=== PATIENT | female | born 1975 | race African-American/Black ===

== ENCOUNTER 2016-04-30 08:13 | Emergency (ER) | payer BC ==
[~2016-04-30] VITALS: Ht 170.2 cm; Wt 110.4 kg
[~2016-04-30 08:13] MED LIST: HYDROCODON-ACE1 EAC7 PO
[2016-04-30 09:09] LABS: HEMATOCRIT 38.8 % (36.0-46.0); MCH 28.6 PG (29.0-34.0); MCHC 32.7 G/DL (30.0-36.0); MCV 87.4 FL (83-99); MEAN PLAT.VOLUME 10.8 uM^3 (9.5-12.4); PLATELET COUNT 245 K/uL (156-360); RBC DIS.WIDTH-CV 12.9 % (11.8-14.6); RBC DIS.WIDTH-SD 40.2 % (39-53); RED BLOOD COUNT 4.44 M/uL (3.80-5.20); WHITE BLOOD COUNT 8.9 K/uL (4.1-10.2)
[2016-04-30 09:17] LABS: CHLORIDE 106 mEq/L (99-109); POTASSIUM 3.4 mEq/L (3.7-5.4); SODIUM 138 mEq/L (136-147)
[2016-04-30 09:20] LABS: ADD MIUA? YES; BILIRUBIN NEGATIVE; BLOOD LARGE; COLOR YELLOW ((YELLOW)); GLUCOSE (STRIP) NEGATIVE; KETONES NEGATIVE; LEUKOCYTES NEGATIVE; NITRITE NEGATIVE; PH, URINE 6.5 (5-8); PROTEIN (STRIP) 30; SPECIFIC GRAVITY 1.028 (1.000-1.030); UROBILINOGEN 0.2 MG/DL (0.2-1.0)
[2016-04-30 09:20] LABS: GLUCOSE 136 mg/dL (70-99)
[2016-04-30 09:21] LABS: ANION GAP 13 MEQ/L (2-14)
[2016-04-30 09:22] LABS: TOTAL BILIRUBIN 1.1 mg/dL (0.0-1.0)
[2016-04-30 09:23] LABS: ALKALINE PHOSPHATASE 50 IU/L (3-129); GFR ESTIMATE (CALCULATED) > 59 mL/min/
[2016-04-30 09:24] LABS: UREA NITROGEN (BUN) 14 mg/dL (9-23)
[2016-04-30 09:32] LABS: QUANTITATIVE HCG < 4.0 MIU/ML
[2016-04-30 09:40] LABS: BACTERIA 3+; CASTS NONE SEEN /LPF; CRYSTALS NONE SEEN; EPITHELIAL CELLS 2+; MUCUS 1+; UCUL ADDED? NO; WHITE BLOOD CELLS 0-5 /HPF (0-5)
[2016-04-30] MEDS ORDERED: IMODIUM MS REL1 EACH PO (10:53)
[2016-04-30] MEDS ORDERED: BENTYL20 MG PO (10:53)
[2016-04-30] MEDS ORDERED: ZOFRAN ODT4 MG PO (10:53)
[2016-04-30 11:54] VITALS: BP 113/81
== END 2016-04-30 11:56 | disposition home or self-care (01) ==
LOC: EME 08:13
DX: K52.9 Noninfective gastroenteritis and colitis, unspecified (principal)
CPT/HCPCS: 80053; 81003; 83630; 84702; 85027; 99281; 99285; J1885; J2405; J7030

== ENCOUNTER 2017-07-27 11:01 | Emergency (ER) | payer OTHER ==
[~2017-07-27] VITALS: Ht 170.2 cm; Wt 110.6 kg
[~2017-07-27 11:01] MED LIST changes: +BENTYL20 MG PO; +IMODIUM MS REL1 EACH PO; +ZOFRAN ODT4 MG PO
[2017-07-27 11:10] VITALS: BP 107/88
[2017-07-27 12:06] LABS: HEMATOCRIT 37.5 % (36.0-46.0); HEMOGLOBIN 12.2 G/DL (11.9-15.5); MCH 28.7 PG (29.0-34.0); MCHC 32.5 G/DL (30.0-36.0); MCV 88.2 FL (83-99); PLATELET COUNT 274 K/uL (156-360); RBC DIS.WIDTH-CV 13.2 % (11.8-14.6); RBC DIS.WIDTH-SD 42.5 % (39-53); RED BLOOD COUNT 4.25 M/uL (3.80-5.20); WHITE BLOOD COUNT 6.4 K/uL (4.1-10.2)
[2017-07-27 12:17] LABS: CHLORIDE 104 mEq/L (99-109); POTASSIUM 3.9 mEq/L (3.7-5.4); SODIUM 140 mEq/L (136-147)
[2017-07-27 12:18] LABS: GLUCOSE 92 mg/dL (70-99)
[2017-07-27 12:22] LABS: CREATININE 0.8 mg/dL (0.6-1.3); GFR ESTIMATE (CALCULATED) > 59 mL/min/
[2017-07-27 12:23] LABS: UREA NITROGEN (BUN) 8 mg/dL (9-23)
[2017-07-27 13:14] LABS: QUANTITATIVE HCG < 4.0 MIU/ML
[2017-07-27 13:16] LABS: APPEARANCE SL.HAZY ((CLEAR)); BILIRUBIN NEGATIVE; BLOOD MODERATE; COLOR YELLOW ((YELLOW)); GLUCOSE (STRIP) NEGATIVE; KETONES 20; LEUKOCYTES NEGATIVE; NITRITE NEGATIVE; PROTEIN (STRIP) 30; UROBILINOGEN 0.2 MG/DL (0.2-1.0)
[2017-07-27] MEDS ORDERED: ZOFRAN4 MG PO (13:23)
[2017-07-27 13:28] LABS: BACTERIA RARE /HPF; EPITHELIAL CELLS 2+ /HPF; MUCUS 2+ /LPF; UCUL ADDED? NO; WHITE BLOOD CELLS 0-5 /HPF (0-5)
== END 2017-07-27 13:34 | disposition home or self-care (01) ==
LOC: EME 11:01
PROVIDERS: Physician Assistant
DX: R55 Syncope and collapse (principal); S09.90XA Unspecified injury of head, initial encounter; X58.XXXA Exposure to other specified factors, initial encounter; Y92.39 Other specified sports and athletic area as the place of occurrence of the external cause
CPT/HCPCS: 70450; 71046; 80048; 81003; 84702; 85027; 93005; 99281; 99284

== ENCOUNTER 2017-11-10 13:11 | Emergency (ER) | payer OTHER ==
[~2017-11-10] VITALS: Ht 172.7 cm; Wt 110.1 kg
[~2017-11-10 13:11] MED LIST changes: +ZOFRAN4 MG PO
[2017-11-10 14:53] LABS: HEMATOCRIT 36.1 % (36.0-46.0); HEMOGLOBIN 12.2 G/DL (11.9-15.5); MCH 29.6 PG (29.0-34.0); MCHC 33.8 G/DL (30.0-36.0); MCV 87.6 FL (83-99); PLATELET COUNT 281 K/uL (156-360); RBC DIS.WIDTH-CV 13.1 % (11.8-14.6); RBC DIS.WIDTH-SD 42.1 % (39-53); RED BLOOD COUNT 4.12 M/uL (3.80-5.20); WHITE BLOOD COUNT 5.2 K/uL (4.1-10.2)
[2017-11-10 15:09] LABS: CHLORIDE 110 mEq/L (99-109); SODIUM 144 mEq/L (136-147)
[2017-11-10 15:10] LABS: GLUCOSE 89 mg/dL (70-99)
[2017-11-10 15:14] LABS: CREATININE 0.8 mg/dL (0.6-1.3); GFR ESTIMATE (CALCULATED) > 59 mL/min/
[2017-11-10 15:15] LABS: UREA NITROGEN (BUN) 6 mg/dL (9-23)
[2017-11-10 15:22] LABS: QUANTITATIVE HCG < 4.0 MIU/ML
[2017-11-10] MEDS ORDERED: NORCO 5/3251 TABLET PO (17:07)
[2017-11-10] MEDS ORDERED: AUGMENTIN875 MG PO (17:07)
[2017-11-10] MEDS ORDERED: DIFLUCAN150 MG PO (17:27)
[2017-11-10 17:35] VITALS: BP 130/99
== END 2017-11-10 17:37 | disposition home or self-care (01) ==
LOC: EME 13:11
PROVIDERS: Nurse Practitioner Family
PROC: 09C0XZZ Extirpation of Matter from Right External Ear, External Approach (ICD-10-PCS; principal; 2017-11-10)
DX: J36 Peritonsillar abscess (principal); H61.21 Impacted cerumen, right ear; Z91.011 Allergy to milk products; Z91.018 Allergy to other foods
CPT/HCPCS: 70491; 80048; 84702; 85027; 87651 90; 99281; 99284; J1100; J2405; J7030